=== PATIENT | female | born 1985 | race Asian ===

== ENCOUNTER 2021-01-16 19:24 | Emergency (ER) | payer OTHER ==
[~2021-01-16] VITALS: Ht 152.4 cm; Wt 65.1 kg
[2021-01-16] MEDS ORDERED: EFFE75CA2 PO (19:42)
[2021-01-16] MEDS ORDERED: LORazepam 2 MG/ML VIAL IV STA (19:43)
[2021-01-16] MEDS ORDERED: LORazepam 2 MG/ML VIAL As Ordered ONE (19:47)
[2021-01-17] VITALS: BP 150/85
[2021-01-17] MEDS ORDERED: MECL-86 PO (17:14)
[2021-01-17] MEDS ORDERED: D31000TA2 PO (18:04)
== END 2021-01-17 00:20 | disposition home or self-care (01) ==
LOC: M ED 19:24
DX: F41.0 Panic disorder [episodic paroxysmal anxiety] (principal); Z91.013 Allergy to seafood; Z79.899 Other long term (current) drug therapy
CPT/HCPCS: 96374; 99284; J2060

== ENCOUNTER 2021-01-17 13:55 | Inpatient (IN) | payer OTHER ==
[~2021-01-17] VITALS: Ht 152.4 cm; Wt 63.5 kg
[~2021-01-17 13:55] MED LIST: EFFE75CA2 PO
[2021-01-17 15:13] LABS: HEMATOCRIT 39.9 % (36.0-47.0); HEMOGLOBIN 12.9 g/dl (12.0-15.5); MEAN CORPUSCULAR HEMOGLOBIN 30.6 pg (27.0-33.0); MEAN CORPUSCULAR HGB CONC 32.3 g/dl (32.0-36.5); MEAN CORPUSCULAR VOLUME 94.8 fl (80.0-96.0); PLATELET COUNT, AUTOMATED 265 10^3/uL (150-450); RED BLOOD COUNT 4.21 10^6/uL (4.00-5.40); WHITE BLOOD COUNT 11.6 10^3/uL (4.0-10.0)
[2021-01-17 15:36] LABS: AMPHETAMINES LEVEL URINE NEGATIVE (NEGATIVE); BARBITURATES URINE NEGATIVE (NEGATIVE); BENZODIAZEPINES URINE NEGATIVE (NEGATIVE); CANNABINOIDS URINE POSITIVE (NEGATIVE); COCAINE METABOLITE URINE NEGATIVE (NEGATIVE); METHADONE URINE NEGATIVE (NEGATIVE); OPIATES URINE NEGATIVE (NEGATIVE); PHENCYCLIDINE URINE NEGATIVE (NEGATIVE)
[2021-01-17 15:47] LABS: ACETAMINOPHEN LEVEL < 2.0 UG/ML (10.0-30.0); ALBUMIN 3.8 GM/DL (3.2-5.2); ALT/SGPT 40 U/L (12-78); BILIRUBIN,DIRECT < 0.1 MG/DL (0.0-0.2); BILIRUBIN,TOTAL 0.2 MG/DL (0.2-1.0); BLOOD UREA NITROGEN 11 MG/DL (7-18); CALCIUM LEVEL 9.2 MG/DL (8.5-10.1); CARBON DIOXIDE LEVEL 27 MEQ/L (21-32); CHLORIDE LEVEL 107 MEQ/L (98-107); CREATININE FOR GFR 0.66 MG/DL (0.55-1.30); ETHYL ALCOHOL (ETHANOL) < 0.003 % (0.000-0.010); GLOMERULAR FILTRATION RATE > 60.0 (>60); GLUCOSE, FASTING 108 MG/DL (70-100); POTASSIUM SERUM 4.2 MEQ/L (3.5-5.1); SALICYLATE LEVEL < 1.7 MG/DL (5.0-30.0); SODIUM LEVEL 139 MEQ/L (136-145); TOTAL PROTEIN 7.2 GM/DL (6.4-8.2)
[2021-01-17] MEDS ORDERED: MECL-86 PO (17:14)
[2021-01-17] MEDS ORDERED: D31000TA2 PO (18:04)
[2021-01-17 18:12] LABS: RSV AMPLIFICATION NEGATIVE (NEGATIVE)
[2021-01-17] MEDS ORDERED: traZODone 50 MG TAB PO PRN (19:05)
[2021-01-17] MEDS ORDERED: MOM 30ML SUSPENSION UDC PO PRN (19:05)
[2021-01-17] MEDS ORDERED: MAALOX 30 ML SUSP *UDC PO PRN (19:05)
[2021-01-17] MEDS ORDERED: LORazepam 1 MG TAB PO PRN (19:05)
[2021-01-17] MEDS: ACETAMINOPHEN TAB 650MG DOSE (2X325MG) PO PRN (21:05)
[2021-01-17 22:03] VITALS: BP 148/98
[2021-01-18 06:46] VITALS: BP 135/86
[2021-01-18] MEDS ORDERED: VENLAFAXINE **XR** 75MG CAPSULE PO SCH (09:00)
[2021-01-18] MEDS: VENLAFAXINE **XR** 75MG CAPSULE PO SCH (09:27)
--- NOTE | 2021-01-18 12:04 | MHHPEPDOC ---
General Date Of Admission: January 18, 2021 Legal Status: 9.13 Chief Complaint "[I wasn't having any panic attacks. I couldn't breathe, I was sweaty. I was scared and very upset and depressed]. History of Present Illness This is a 35-year-old [place] female who Has a history of depression since she had her last child in 2011. She has been seeing a psychiatrist and was a prescribed the effects up to 75 mg but had no previous inpatient treatment. The patient was brought to emergency room by her after she experienced a few severe panic attacks last night reporting feeling anxious, fearful, or scared, couldn't breathe, but also was quite depressed and sad and tearful and was admitted on voluntary status. Patient states that although she has been taking Effexor as prescribed but stated having frequent episodes of anxiety and depression for several months especially with her missing her home country of [facility] which she hasn't visited for the past 7 years but strongly denies any suicidal thoughts. She states that she agreed to come in so she can get her medication adjusted so she doesn't have to suffer from the panic attacks but also hoping that she might be able to control her depressed mood. She is denying any history of a suicidal attempt. Denies any thoughts of suicide and is willing to cooperate with treatment. She denies any history of karen or psychosis. Psychiatric Review of Systems Depression (2 or more weeks): depressed mood, anhedonia, decreased energy, difficulty concentrating Karen (4 or more days of): denies Psychosis: denies PTSD: denies Anxiety: gen/non-specific anxiety, situational anxiety, stressor related anxiety, panic attacks Anxiety/ 6 months or more of: easily fatigued, difficulty concentrating Past Psychiatric History Previous Psychiatric Diagnosis: Episode of anxiety and depression since 2011. Previous Psychiatric Admissions: No previous inpatient treatment . Suicide Attempts: None. Psychiatric Follow-up: Gets antidepressant medicine from her primary care doc sonia. Psychiatric medications: Takes Effexor 75 mg daily. Past Medical History Medical Problems Patient denies any major medical episode Head Injury: No Seizures: No Hospitalizations: No Surgeries: No Family Medical/Psychiatric HX Medical Problems Patient's father of a heart attack and her mother of bone cancer Psychiatric Disorders: No Addiction: No Suicide Attemps/Completions: No Addiction History denies Social History Childhood: Born in [facility]. Abuse/Trauma: None . Current Living Situation: Reviewed the and 4 children aged 8 12 13 17. Education: High school graduation. Employment: No employment history Social Support: . She has only 1 sister living in [facility]. Legal: No legal issues. Marital: Been for 17 years. Her being very supportive and understanding. Her is a [employer] sergeant stationed at [place]. Mental Status Examination General Appearance: appears stated age, hospital scubs/clothing Build: average Demeanor: average Eye Contact: average Activity: average Behavior: cooperative Speech: clear, normal volume, reg/rate,rhythm,volume Mood: depressed, anxious Mood Reports feeling anxious at times is sad and depressed Affect: appropriate, congruent, anxious Thought Process: logical/linear Thought Content (Delusions): none reported Thought Content (Other): none reported Thought Content (Aggressive): none reported Perception (Hallucinations): none reported Perception (Other): none reported Cognition (Impairment of): none reported Cognition(Intelligence Est.): average Oriented: Awake, Alert, Oriented times three Insight: fair Judgment: Fair Psychosis: Denies Diagnoses Major depressive episode, recurrent, moderate A-FIB/CHADSVASC A-FIB History Current/History of A-Fib/PAF?: No Current PO Anticoag Therapy: No Age/Risk Factor Scoring CHADSVASC: CHADSVASC Response (Comments) Value Gender Risk Factor Female 1 Hx of CHF No 0 Hx of HTN No 0 Hx of Stroke/TIA/or VTE No 0 Hx of Diabetes No 0 Hx of Vascular Disease No 0 Total 1 Initial Treatment Plan 1. Patient was admitted on a 9.39 status. 2. Complete history was obtained. 3. With patients permission, family will be contacted and database will be expanded. 4. Patients medication regimen will be reviewed and changed accordingly. 5. Patient will be provided with protected environment. 6. Patient will be treated with individual, group, and milieu therapies. 7. Patient will receive supportive psych-education. 8. Discharge planning will commence immediately. 9. Outpatient follow-up treatment will be strongly recommended. 10. The initial treatment plan will focus initially on: * Depression. * Risk for suicide. ESTIMATED LENGTH OF STAY: 3-5 days- DAYS. TIME SPENT COUNSELING AND COORDINATING INITIAL CARE: 50 minutes Tobacco Cessation Screen If Patient is a Smoker Patient is nonsmoker N/A-No Antipsychotics Vital Signs Vital Signs Date Time Temp Pulse Resp B/P (MAP) Pulse Ox O2 Delivery O2 Flow Rate FiO2 01/18/21 06:46 97.8 78 16 135/86 (102) 98 Room Air Laboratory Data 24H Labs Laboratory Tests 2 01/17/21 14:57: Nucleated Red Blood Cells % (auto) 0.0, Anion Gap 5L, Glomerular Filtration Rate > 60.0, Calcium Level 9.2, Total Bilirubin 0.2, Direct Bilirubin < 0.1, Aspartate Amino Transf (AST/SGOT) 18, Alanine Aminotransferase (ALT/SGPT) 40, Alkaline Phosphatase 65, Total Protein 7.2, Albumin 3.8, Albumin/Globulin Ratio 1.1L, Thyroid Stimulating Hormone (TSH) 1.240, Salicylates Level < 1.7L, Urine Opiates Screen NEGATIVE, Urine Methadone Screen NEGATIVE, Acetaminophen Level < 2.0L, Urine Barbiturates Screen NEGATIVE, Urine Phencyclidine Screen NEGATIVE, Urine Amphetamines Screen NEGATIVE, Urine Benzodiazepines Screen NEGATIVE, Urine Cocaine Metabolite Screen NEGATIVE, Urine Cannabinoids Screen POSITIVEH, Ethyl Alcohol Level < 0.003 01/17/21 17:26: Coronavirus (COVID-19)(PCR) NEGATIVE, Influenza Type A (RT-PCR) NEGATIVE, Influenza Type B (RT-PCR) NEGATIVE, Respiratory Syncytial Virus (PCR) NEGATIVE CBC/BMP Laboratory Tests 01/17/21 14:57 Medications Scheduled Cholecalciferol (Vitamin D3) (Vitamin D3) 1,000 Unit Tablet, 5,000 UNITS PO DAILY, (Reported) Venlafaxine HCl (Effexor Xr) 75 Mg Cap.er.24h, 75 MG PO DAILY, (Reported) Scheduled PRN Meclizine HCl (Meclizine HCl) 25 Mg Tablet, 25 MG PO TID PRN for DIZZINESS, (Reported) Allergies Coded Allergies: shellfish derived (Verified Allergy, Unknown, 01/16/21) ESTHER RACHEL M.D. January 18, 2021 12:04
--- NOTE | 2021-01-18 12:36 | HPEPDOC ---
[facility] Medical History & Physical Date of Admission January 17, 2021 Date of Service: January 18, 2021 History and Physical CHIEF COMPLAINT: shortness of breath, diaphoresis HISTORY OF PRESENT ILLNESS: 35F brought to emergency room by her after she experienced a few severe panic attacks reporting feeling anxious, fearful, or scared, couldn't breathe, but also was quite depressed and sad and tearful and was admitted on voluntary status. Patient states that although she has been taking Effexor as prescribed but stated having frequent episodes of anxiety and depression for several months especially with her missing her home country of [facility] which she hasn't visited for the past 7 years but strongly denies any suicidal thoughts. She denies chest pain, shortness of breath, headaches, abdominal pain, N/V/D. PAST MEDICAL HISTORY: Denies PAST SURGICAL HISTORY: #carpal tunnel release ALLERGIES: Please see below. REVIEW OF SYSTEMS: Negative except as per HPI. HOME MEDICATIONS: Please see below. PHYSICAL EXAMINATION: VITAL SIGNS: See below General: NAD, sitting comfortably in chair HEENT: NC/AT, EOMI Lungs: CTA B/L Heart: +S1S2, RRR Abd: soft, NT, +BS Ext: no edema LABORATORY DATA: See below. MICROBIOLOGY: Please see below. A/P: 35 yo female admitted for panic attacks, denies suicidal/homicidal ideation. #panic attacks - follow as per primary team Thank you for this consultation. Please re-consult as needed. Vital Signs Vital Signs Date Time Temp Pulse Resp B/P (MAP) Pulse Ox O2 Delivery O2 Flow Rate FiO2 01/18/21 06:46 97.8 78 16 135/86 (102) 98 Room Air Laboratory Data Labs 24H Laboratory Tests 2 01/17/21 14:57: Nucleated Red Blood Cells % (auto) 0.0, Anion Gap 5L, Glomerular Filtration Rate > 60.0, Calcium Level 9.2, Total Bilirubin 0.2, Direct Bilirubin < 0.1, Aspartate Amino Transf (AST/SGOT) 18, Alanine Aminotransferase (ALT/SGPT) 40, Alkaline Phosphatase 65, Total Protein 7.2, Albumin 3.8, Albumin/Globulin Ratio 1.1L, Thyroid Stimulating Hormone (TSH) 1.240, Salicylates Level < 1.7L, Urine Opiates Screen NEGATIVE, Urine Methadone Screen NEGATIVE, Acetaminophen Level < 2.0L, Urine Barbiturates Screen NEGATIVE, Urine Phencyclidine Screen NEGATIVE, Urine Amphetamines Screen NEGATIVE, Urine Benzodiazepines Screen NEGATIVE, Urine Cocaine Metabolite Screen NEGATIVE, Urine Cannabinoids Screen POSITIVEH, Ethyl Alcohol Level < 0.003 01/17/21 17:26: Coronavirus (COVID-19)(PCR) NEGATIVE, Influenza Type A (RT-PCR) NEGATIVE, Influenza Type B (RT-PCR) NEGATIVE, Respiratory Syncytial Virus (PCR) NEGATIVE CBC/BMP Laboratory Tests 01/17/21 14:57 Home Medications Scheduled Cholecalciferol (Vitamin D3) (Vitamin D3) 1,000 Unit Tablet, 5,000 UNITS PO DAILY Venlafaxine HCl (Effexor Xr) 75 Mg Cap.er.24h, 75 MG PO DAILY Scheduled PRN Meclizine HCl (Meclizine HCl) 25 Mg Tablet, 25 MG PO TID PRN for DIZZINESS Allergies Coded Allergies: shellfish derived (Verified Allergy, Unknown, 01/16/21) A-FIB/CHADSVASC A-FIB History Current/History of A-Fib/PAF?: No Age/Risk Factor Scoring CHADSVASC: CHADSVASC Response (Comments) Value Gender Risk Factor Female 1 Hx of CHF No 0 Hx of HTN No 0 Hx of Stroke/TIA/or VTE No 0 Hx of Diabetes No 0 Hx of Vascular Disease No 0 Total 1 OTOTIE SHAH MD January 18, 2021 12:36
[2021-01-18] MEDS: ACETAMINOPHEN TAB 650MG DOSE (2X325MG) PO PRN ×2 (14:35→20:35)
[2021-01-18 16:19] VITALS: BP 128/71
[2021-01-19 06:29] VITALS: BP 136/98
[2021-01-19] MEDS: VENLAFAXINE **XR** 75MG CAPSULE PO SCH (08:37)
--- NOTE | 2021-01-19 10:36 | MHIPNPDOC ---
[facility] Progress Note Progress Note DATE OF SERVICE: 01/19/21 This 35-year-old female was admitted due to increasing depression and panic symptoms. Her Effexor was increased 150 mg daily and she took her morning dose yesterday. Reports that the she had the slight headache throughout the day. She has no other side effect. Otherwise. The patient states that she is feeling better after being admitted and didn't have any more panic symptoms and has not feeling any suicidal thoughts anymore. She is worried about her children, although her and the neighbors are taking care of them and she has sp oken with her and stated that she feels being understood and supported. She feels more hopeful with the treatment and claims that she is not having any suicidal thoughts and is somewhat anxious to go home as soon as possible. Patient was advised to give a few more days to see the benefit of increased the medications and she is agreeable to this plan. HISTORY: . VITAL SIGNS: See below. NEW TEST RESULTS: . CURRENT MEDICATIONS: See below. MENTAL STATUS EXAMINATION: Patient is a [35]-year old female, who is [in no acute distress]. Speech: Is [, productive]. Language skills are [good]. Thought processes including: [, Organized]. Thought content: [No psychotic symptoms]. Abstract reasoning, and computation: [Good]. Description of associations: [, Organized]. Description of abnormal or psychotic thoughts: [None]. Judgment: [.fair]. Insight: fair]. Orientation: Well oriented . Recent and remote memory: [Good. Attention span and concentration: [Good]. Language: . Fund of knowledge: [Average]. Mood: [Moderately depressed]. Affect: [, Depressed, but appropriate]. DIAGNOSES: 1. [Major depression, recurrent]. 2. . 3. . ASSESSMENT:[Cooperating and tolerating medications MANAGEMENT PLAN: [. Continue with the increase of Effexor and supportive therapy]. TIME SPENT: [20 minutes] minutes. Vital Signs Vital Signs Date Time Temp Pulse Resp B/P (MAP) Pulse Ox O2 Delivery O2 Flow Rate FiO2 01/19/21 06:29 97.7 99 16 136/98 (111) 100 Room Air Current Medications Current Medications Medications (Trade) Dose Ordered Sig/Patrica Route PRN Reason Start Time Stop Time Status Last Admin Dose Admin Acetaminophen (Tylenol Tab) 650 mg Q6HP PRN PO HEADACHE or DISCOMFORT 01/17/21 19:05 01/18/21 20:35 Al Hydrox/Mg Hydrox/Simethicone (Mylanta) 30 ml Q4HP PRN PO HEARTBURN/INDIGESTION 01/17/21 19:05 Home Med (Med Rec Complete!) ASDIRECTED XX 01/17/21 18:05 01/17/21 18:05 DC Lorazepam (Ativan) 1 mg Q6HP PRN PO ANXIETY/AGITATION 01/17/21 19:05 01/19/21 19:05 Magnesium Hydroxide (Milk Of Magnesia) 30 ml DAILYPRN PRN PO CONSTIPATION 01/17/21 19:05 Trazodone HCl (Desyrel) 50 mg QHSP PRN PO INSOMNIA 01/17/21 19:05 Venlafaxine HCl (Effexor Xr) 75 mg DAILY PO 01/18/21 09:00 Cancel Venlafaxine HCl (Effexor Xr) 150 mg DAILY PO 01/18/21 09:00 01/19/21 08:37 Allergies Coded Allergies: shellfish derived (Verified Allergy, Unknown, 01/16/21) ESTHER RACHEL M.D. January 19, 2021 10:36
[2021-01-19 16:16] VITALS: BP 135/90
[2021-01-20 06:05] VITALS: BP 139/90
[2021-01-20] MEDS: VENLAFAXINE **XR** 75MG CAPSULE PO SCH (08:13)
--- NOTE | 2021-01-20 09:16 | MHIPNPDOC ---
[facility] Progress Note Progress Note DATE OF SERVICE: 01/20/21 The patient reports that the she didn't have any headache yesterday after taking the medicine and is feeling safe to continue the current amount of Effexor. She also reports that the she spoke with her and he is more understanding and supportive and stated that the he is agreeable to have her visit her country next year. She is missing her children and would like to be home soon and strongly denies any suicidal thoughts at all. She didn't have any panic attacks and appears more animated and spontaneous and maintaining good control with no suicidal thoughts or behavior. HISTORY: . VITAL SIGNS: See below. NEW TEST RESULTS: . CURRENT MEDICATIONS: See below. MENTAL STATUS EXAMINATION: Patient is a 35-year old female, Speech: Is , productive and rational. Language skills are good. Thought processes including: , Organized. Thought content: Without any psychosis. Abstract reasoning, and computation: Good. Description of associations: Good. Description of abnormal or psychotic thoughts: None. Judgment: , Fair. Insight: [, Fair. Orientation: , Well oriented. Recent and remote memory: Good. Attention span and concentration: Good. Language: . Fund of knowledge: Average. Mood: Euthymic. Affect: , Appropriate. DIAGNOSES: 1. . Major depression, recurrent 2. . 3. . ASSESSMENT:Cooperating with the treatment and showing improvement MANAGEMENT PLAN: . Continue with the current medicine and possible discharge tomorrow. TIME SPENT: 20 minutes. Vital Signs Vital Signs Date Time Temp Pulse Resp B/P (MAP) Pulse Ox O2 Delivery O2 Flow Rate FiO2 01/20/21 06:05 98.3 84 16 139/90 (106) 100 Room Air Current Medications Current Medications Medications (Trade) Dose Ordered Sig/Patrica Route PRN Reason Start Time Stop Time Status Last Admin Dose Admin Acetaminophen (Tylenol Tab) 650 mg Q6HP PRN PO HEADACHE or DISCOMFORT 01/17/21 19:05 01/18/21 20:35 Al Hydrox/Mg Hydrox/Simethicone (Mylanta) 30 ml Q4HP PRN PO HEARTBURN/INDIGESTION 01/17/21 19:05 Home Med (Med Rec Complete!) ASDIRECTED XX 01/17/21 18:05 01/17/21 18:05 DC Lorazepam (Ativan) 1 mg Q6HP PRN PO ANXIETY/AGITATION 01/17/21 19:05 01/19/21 19:05 DC Magnesium Hydroxide (Milk Of Magnesia) 30 ml DAILYPRN PRN PO CONSTIPATION 01/17/21 19:05 Trazodone HCl (Desyrel) 50 mg QHSP PRN PO INSOMNIA 01/17/21 19:05 Venlafaxine HCl (Effexor Xr) 75 mg DAILY PO 01/18/21 09:00 Cancel Venlafaxine HCl (Effexor Xr) 150 mg DAILY PO 01/18/21 09:00 01/20/21 08:13 Allergies Coded Allergies: shellfish derived (Verified Allergy, Unknown, 01/16/21) ESTHER RACHEL M.D. January 20, 2021 09:16
[2021-01-20] MEDS: ACETAMINOPHEN TAB 650MG DOSE (2X325MG) PO PRN ×2 (11:30→20:46)
[2021-01-20 17:18] VITALS: BP 143/71
[2021-01-21 06:21] VITALS: BP 142/67
[2021-01-21] MEDS: VENLAFAXINE **XR** 75MG CAPSULE PO SCH (08:16)
[2021-01-21] MEDS ORDERED: VENL75CA47 PO (09:27)
--- NOTE | 2021-01-28 07:36 | MHDSPDOC ---
[facility] Discharge Summary Discharge Summary DATE OF ADMISSION: January 17, 2021 at 19:02 DATE OF DISCHARGE: January 21 06/29/2021 DISCHARGE DIAGNOSES: 1. Major depression, recurrent, moderate. 2. . REASON FOR ADMISSION: 35-year-old patient female admitted due to increasing depression and acute panic attacks with vague suicidal thoughts. Patient has no prior inpatient treatment, but has been in outpatient therapy since 2011 for what appears to be a depression. She states that she is been experiencing increasing panic attacks in the past several months and experiencing increasing depression. On admission, she denies any active suicidal thoughts, but feeling sad, depressed, anxious, and having frequent panic attacks CONSULTANTS INVOLVED: , Not [id number] TREATMENT AND PROGRESS ON THE UNIT : Patient to was seen for daily supportive therapy and her medication E was increased to 250 mg daily and was evaluated for any suicidal risk. HOSPITAL COURSE: Patient tolerated increased the medications were without any side effect. Reports that her panic symptoms as decreased and she is not as feeling depressed or hopeless. She is been missing her family and wanted to visit them as soon as possible, but not been able to do so which was was one of her main stressors. Her is very understanding and supportive and she is feeling much less depressed and denies any suicidal thoughts and her affect is much more animated than spontaneous and normal panic symptoms reported. DISCHARGE ASSESSMENT: Patient is much improved and stable and not suicidal MENTAL STATUS EXAMINATION ON DISCHARGE: Patient is a -year old female, who is . Speech is , productive. Language skills are good. Thought processes including: Well-organized. Thought content: No suicidal thoughts. Abstract reasoning, and computation: Good. Description of associations: Good. Description of abnormal or psychotic thoughts: None. Judgment: , Fair. Insight: Good. Orientation to , well-oriented. Recent and remote memory: Good . Attention span and concentration: Good. Language: . Fund of knowledge: Average . Mood: , Not as anxious and feeling much more hopeful. Affect: Appropriate with good range. MEDICATIONS ON DISCHARGE: - Effexor are 150 mg daily for 7 days with a 3 refills for . - for . - for . PLAN/FOLLOWUP ARRANGEMENT to follow up with the [facility] outpatient clinic. The amount of time spent in the coordination of care for this patient was approximately 40 minutes ETOH/Disorder Med Rx ETOH/DRUG DISORDER RX: N/A Vital Signs/I&Os Vital Signs Date Time Temp Pulse Resp B/P (MAP) Pulse Ox O2 Delivery O2 Flow Rate FiO2 01/21/21 06:21 98.5 88 15 142/67 (92) 99 Room Air Medications Scheduled Cholecalciferol (Vitamin D3) (Vitamin D3) 1,000 Unit Tablet, 5,000 UNITS PO DAILY, (Reported) Venlafaxine HCl (Venlafaxine HCl ER) 75 Mg Cap.er.24h, 150 MG PO DAILY for depression for 7 Days, #14 Allergies Coded Allergies: shellfish derived (Verified Allergy, Unknown, 01/16/21) ESTHER RACHEL M.D. January 21, 2021 07:51
== END 2021-01-21 10:30 | disposition home or self-care (01) | DRG 885 ==
LOC: M ED 13:55 → M ED INP 19:02 → M PSY 21:30
PROVIDERS: ADMIT Psychiatry & Neurology Psychiatry; ATTEND Psychiatry & Neurology Psychiatry
DX: F33.1 Major depressive disorder, recurrent, moderate (principal); Z20.822 Contact with and (suspected) exposure to COVID-19; Z79.899 Other long term (current) drug therapy; Z91.013 Allergy to seafood; R06.02 Shortness of breath; R61 Generalized hyperhidrosis; F41.0 Panic disorder [episodic paroxysmal anxiety]

== ENCOUNTER 2021-07-04 11:02 | Emergency (ER) | payer OTHER ==
[~2021-07-04] VITALS: Ht 152.4 cm; Wt 70.9 kg
[~2021-07-04 11:02] MED LIST changes: +D31000TA2 PO; +MECL-86 PO; +VENL75CA47 PO
--- OUTSIDE RECORDS SUMMARY | 2021-07-04 11:08 | CCD ---
Author Author [facility] Organization [facility] Address Unknown Phone Unavailable Care Team Providers Care Lathe Tender Name Role Phone Kacey KELLER MD Unavailable Unavailable Kacey KELLER MD Unavailable Unavailable Kacey EKLLER MD Unavailable Unavailable Kacey KELLER MD Unavailable Unavailable Kacey KELLER MD Unavailable Unavailable Kacey KELLER MD Unavailable Unavailable Kacey KELLER MD Unavailable Unavailable Kacey KELLER MD Unavailable Unavailable Kacey KELLER MD Unavailable Unavailable Kacey KELLER MD Unavailable Unavailable Kacey KELLER MD Unavailable Unavailable Kacey KELLER MD Unavailable Unavailable Kacey KELLER MD Unavailable Unavailable Kacey KELLER MD Unavailable Unavailable Kacey KELLER MD Unavailable Unavailable Kacey KELLER MD Unavailable Unavailable Kacey KELLER MD Unavailable Unavailable Kacey KELLER MD Unavailable Unavailable Kacey KELLER MD Unavailable Unavailable Kacey KELLER MD Unavailable Unavailable Kacey KELLER MD Unavailable Unavailable Kacey KELLER MD Unavailable Unavailable Kacey KELLER MD Unavailable Unavailable Kacey KELLER MD Unavailable Unavailable Kacey KELLER MD Unavailable Unavailable Kacey KELLER MD Unavailable Unavailable Kacey KELLER MD Unavailable Unavailable Kacey KELLER MD Unavailable Unavailable Kacey KELLER MD Unavailable Unavailable Kacey KELLER MD Unavailable Unavailable Kacey KELLER MD Unavailable Unavailable Kacey KELLER MD Unavailable Unavailable Kacey KELLER MD Unavailable Unavailable Kacey KELLER MD Unavailable Unavailable Kacey KELLER MD Unavailable Unavailable Kacey KELLER MD Unavailable Unavailable Kacey KELLER MD Unavailable Unavailable Kacey KELLER MD Unavailable Unavailable Kacey KELLER MD Unavailable Unavailable Kacey KELLER MD Unavailable Unavailable Re-disclosure Warning The records that you are about to access may contain information from federally-assisted alcohol or drug abuse programs. If such information is present, then the following federally mandated warning applies: This information has been disclosed to you from records protected by federal confidentiality rules (42 CFR part 2). The federal rules prohibit you from making any further disclosure of this information unless further disclosure is expressly permitted by the written consent of the person to whom it pertains or as otherwise permitted by 42 CFR part 2. A general authorization for the release of medical or other information is NOT sufficient for this purpose. The Federal rules restrict any use of the information to criminally investigate or prosecute any alcohol or drug abuse patient.The records that you are about to access may contain highly sensitive health information, the redisclosure of which is protected by Article 27-F of the [facility] Public Health law. If you continue you may have access to information: Regarding HIV / AIDS; Provided by facilities licensed or operated by the [facility] Office of Mental Health; or Provided by the [facility] Office for People With Developmental Disabilities. If such information is present, then the following [facility] mandated warning applies: This information has been disclosed to you from confidential records which are protected by state law. State law prohibits you from making any further disclosure of this information without the specific written consent of the person to whom it pertains, or as otherwise permitted by law. Any unauthorized further disclosure in violation of state law may result in a fine or group home sentence or both. A general authorization for the release of medical or other information is NOT sufficient authorization for further disc losure. Encounters Encounter Providers Location Date Indications Data Source(s ) Outpatient Attender: SHON KELLER MDConsultant: SHON Prado MD 06/29/2021 11:47:59 AM EDT [facility] Immunizations Vaccine Date Status Description Data Source(s) COVID-19 VACCINE Pfizer 12/28/2020 12:00:00 AM EDT completed [facility] Vaccine Series Complete: YESThis Data wa s Submitted to [facility] Via [employer]. COVID-19 VACCINE Pfizer 12/07/2020 12:00:00 AM EDT completed [facility] Vaccine Series Complete: NOThis Data was Submitted to [facility] Via [employer]. Medications No Information Insurance Providers Payer name Policy type / Coverage type Policy ID Covered democrat ID Covered democrat's relationship to licona Policy Licona Plan Information [facility] [id number] [facility] [id number] [facility] [id number] 18 [id number] [facility] [id number] [facility] [id number] [facility] [id number] [facility] [id number] [facility] [id number] [facility] [id number] Problems, Conditions, and Diagnoses No Information Surgeries/Procedures No Information Results ID Date Data Source [id number] 06/30/2021 10:39:00 [place] [address] PHONE: [phone] FAX: [phone] Name .................. : MESHA Brown Acct Number.................. : [id number] ROOM. ................. : Number ................... : [id number] Stay type ............. : O/P Discharge Date......... ... : Admit Date ......... : Admit Phys .................... : KRISHNA AGUILA Date of ....... : 1985 Family Phys ................... : KRISHNA AGUILA Phone .................. : [phone] Age ................................ : 35 Film# .................. .:[id number] Sex ................................. : F Unsigned transcriptions are preliminary reports and do not represent a medical or legal document MRI UPP EXT ANY JT W/O CON RT [id number] COMPLETE:06/30/21 15:34 SLOAN [id number] Reason for Exam: R WRIST PAIN MRI RIGHT WRIST WITHOUT CONTRAST INDICATION: Carpal tunnel surgery 3 years ago. Pain in the wrist 6 months. Clinical diagnosis radial styloid tenosynovitis. COMPARISON: None CONTRAST: None TECHNIQUE: Multiplanar imaging is performed of the wrist using multiple pulse sequences. The examination is degraded by large patient motion. FNDINGS: TFCC: Intact. LIGAMENTS: The scapholunate and lunotriquetral ligaments are intact. BONES: No fracture or bone contusion. No destructive bone lesion. JOINTS: The articular cartilage is well preserved. No significant degenerative changes. No subluxation or dislocation. Moderate effusion in the distal radioulnar joint. TENDONS: Mild increased fluid is seen in the extensor pollicis brevis tendon sheath. The tendon is mildly enlarged. There is internal T2 signal with some longitudinal splitting. No other tendon abnormalities are identified. MUSCLES: No muscle edema or atrophy. IMPRESSION: 1. Partial tear extensor pollicis brevis with longitudinal splitting. Mild tenosynovitis. 2. Moderate joint effusion distal radial ulnar joint. Page 1 of 2 [place] [address] PHONE: [phone] FAX: [phone] Name .................. : MESHA Brown Acct Number.................. : [id number] ROOM. ................. : MR Number ................... : [id number] Stay type ............. : O/P Discharge Date......... ... : Admit Date ......... : Admit Phys .................... : KRISHNA MINGO Date of ....... : 1985 Family Phys ................... : KRISHNA AGUILA Phone .................. : [phone] Age ................................ : 35 Film# .................. .:[id number] Sex ................................. : F Unsigned transcriptions are preliminary reports and do not represent a medical or legal document MRI UPP EXT ANY JT W/O CON RT [id number] COMPLETE:06/30/21 15:34 SLOAN [id number] Reason for Exam: R WRIST PAIN Electronically Reviewed and Signed By Woo Leary MD , 06/30/21 22:39, JWS Transcribe Initials: DZ , Transcribe Date: 06/30/21 19:20, Dictation Date: Copy for: KRISHNA Erazo via fax Copy for: 710 MED REC Page 2 of 2 Name Value Range Interpretation Code Description Data Jackie rce(s) Supporting Document(s) ID Date Data Source [id number] 01/17/2021 05:26:00 PM EDT [facility] Name Value Range Interpretation Code Description Data Jackie rce(s) Supporting Document(s) SARS coronavirus 2 RNA [Presence] in Res piratory specimen by RAY with probe detection NEGATIVE [facility] This lab was ordered by [facility] a nd reported by [facility]. Procedure Social History No Information
--- OUTSIDE RECORDS SUMMARY | 2021-07-04 12:55 | CCD ---
Author Author [facility] Organization [facility] Address Unknown Phone Unavailable Care Team Providers Care Java Programmer Analyst Name Role Phone Kacey KELLER MD Unavailable [...] is protected by Article 27-F of the [facility] Public Health law. If you continue you may have access to information: Regarding HIV / AIDS; Provided by facilities licensed or operated by the [facility] Office of Mental Health; or Provided by the [facility] Office for People With Developmental Disabilities. If such information is present, then the following [facility] mandated warning applies: This information [...] law may result in a fine or senior care sentence or both. A general authorization for the release of medical or other information is NOT sufficient authorization for further disc losure. Encounters Encounter Providers Location Date Indications Data Source(s ) Outpatient Attender: SHON KELLER MDConsultant: SHON Prado MD 06/29/2021 11:47:59 AM EDT [facility] Immunizations Vaccine Date Status Description Data Source(s) COVID-19 VACCINE Pfizer 12/28/2020 12:00:00 AM EDT completed [facility] Vaccine Series Complete: YESThis Data wa s Submitted to [facility] Via [employer]. COVID-19 VACCINE Pfizer 12/07/2020 12:00:00 AM EDT completed [facility] Vaccine Series Complete: NOThis Data was Submitted to [facility] Via [employer]. Medications No Information Insurance Providers Payer name Policy type / Coverage type Policy ID Covered libertarian ID Covered libertarian's relationship to licona Policy Licona Plan Information [facility] [id number] [facility] [id number] [facility] [id number] 18 [id number] [facility] [id number] [facility] [id number] [facility] D[facility] [id number] [facility] [id number] [facility] [id number] [facility] [id number] Problems, Conditions, and Diagnoses No Information Surgeries/Procedures No Information Results ID Date Data Source [id number] 06/30/2021 10:39:00 [place] [address] PHONE: [phone] FAX: [phone] Name .................. : MESHA Brown Acct Number.................. : [id number] ROOM. ................. : Number ................... : [id number] Stay type ............. : O/P Discharge Date......... ... : Admit Date ......... : Admit Phys .................... : KRISHNA AGUILA Date of ....... : 1985 Family Phys ................... : KRISHNA AGUILA Phone .................. : [phone] Age ................................ : 35 Film# .................. .:[id number] Sex ................................. : F Unsigned transcriptions are preliminary reports and do not represent a medical or legal document MRI UPP EXT ANY JT W/O CON RT [id number] COMPLETE:06/30/21 15:34 SLOAN [id number] Reason for Exam: R WRIST PAIN MRI [...] radial ulnar joint. Page 1 of 2 [place] [address] PHONE: [phone] FAX: [phone] Name .................. : MESHA Brown Acct Number.................. : [id number] ROOM. ................. : MR Number ................... : [id number] Stay type ............. : O/P Discharge Date......... ... : Admit Date ......... : Admit Phys .................... : KRISHNA MINGO Date of ....... : 1985 Family Phys ................... : KRISHNA AGUILA Phone .................. : [phone] Age ................................ : 35 Film# .................. .:[id number] Sex ................................. : F Unsigned transcriptions are preliminary reports and do not represent a medical or legal document MRI UPP EXT ANY JT W/O CON RT [id number] COMPLETE:06/30/21 15:34 SLOAN [id number] Reason for Exam: R WRIST PAIN Electronically Reviewed and Signed By Woo Leary MD , 06/30/21 22:39, JWS Transcribe Initials: DZ , Transcribe Date: 06/30/21 19:20, Dictation Date: Copy for: KRISHNA Erazo via fax Copy for: 710 MED REC Page 2 of 2 Name Value Range Interpretation Code Description Data Jackie rce(s) Supporting Document(s) ID Date Data Source [id number] 01/17/2021 05:26:00 PM EDT [facility] Name Value Range Interpretation Code Description Data Jackie rce(s) Supporting Document(s) SARS coronavirus 2 RNA [Presence] in Res piratory specimen by RAY with probe detection NEGATIVE [facility] This lab was ordered by [facility] a nd reported by [facility]. Procedure Social History No Information
--- NOTE | 2021-07-04 13:52 | REP ---
INDICATION: CHEST PAIN. COMPARISON: None. TECHNIQUE: Portable FINDINGS: The technique utilized in obtaining the radiograph has magnified the cardiac silhouette and accentuated the interstitial markings. The superior mediastinal structures are midline. The cardiac silhouette is unremarkable in size, shape, and position. The diaphragmatic surfaces of the lungs are regular, and the costophrenic angles are clear. The pulmonary kumar are clear. The imaged osseous structures are intact. IMPRESSION: There is no acute cardiopulmonary disease. <Electronically signed by Roverto Angelo > 07/04/21 [id number]
[2021-07-04 13:56] LABS: BASO % 0.6 % (0.0-1.0); EOS # 0.1 10^3/uL (0.0-0.5); EOS % 1.4 % (0.0-3.0); HEMATOCRIT 42.1 % (36.0-47.0); HEMOGLOBIN 13.7 g/dl (12.0-15.5); LYMPH # 2.6 10^3/uL (1.5-5.0); LYMPH % 39.6 % (24.0-44.0); MEAN CORPUSCULAR HEMOGLOBIN 30.7 pg (27.0-33.0); MEAN CORPUSCULAR HGB CONC 32.5 g/dl (32.0-36.5); MEAN CORPUSCULAR VOLUME 94.4 fl (80.0-96.0); MONO # 0.4 10^3/uL (0.0-0.8); MONO % 5.7 % (2.0-8.0); NEUTROPHILS # 3.5 10^3/uL (1.5-8.5); NEUTROPHILS % 52.5 % (36.0-66.0); PLATELET COUNT, AUTOMATED 292 10^3/uL (150-450); RED BLOOD COUNT 4.46 10^6/uL (4.00-5.40); WHITE BLOOD COUNT 6.6 10^3/uL (4.0-10.0)
[2021-07-04 14:23] LABS: ALBUMIN 3.9 GM/DL (3.2-5.2); ALT/SGPT 44 U/L (12-78); BILIRUBIN,DIRECT < 0.1 MG/DL (0.0-0.2); BILIRUBIN,TOTAL 0.3 MG/DL (0.2-1.0); BLOOD UREA NITROGEN 10 MG/DL (7-18); CALCIUM LEVEL 9.7 MG/DL (8.5-10.1); CARBON DIOXIDE LEVEL 28 MEQ/L (21-32); CHLORIDE LEVEL 108 MEQ/L (98-107); CREATININE FOR GFR 0.76 MG/DL (0.55-1.30); GLOMERULAR FILTRATION RATE > 60.0 (>60); GLUCOSE, FASTING 101 MG/DL (70-100); LIPASE 175 U/L (73-393); SODIUM LEVEL 142 MEQ/L (136-145); TOTAL PROTEIN 7.4 GM/DL (6.4-8.2)
[2021-07-04 14:29] VITALS: BP 145/95
--- NOTE | 2021-07-04 18:25 | ECGEPIP ---
[facility] - ED Test Date: 2021-07-04 Pat Name: ENRIQUE ZIMMER Department: Room: - Gender: Female Psychiatry Physician: AMMY : 1985 Requested By: Margarita Davenport Order Number: [id number] Reading MD: Margarita Davenport Measurements Intervals [place] Rate: 74 P: 47 WY: 156 QRS: -15 QRSD: 88 T: 24 QT: 404 QTc: 448 Interpretive Statements Normal sinus rhythm with sinus arrhythmia irbbb no prior Electronically Signed on 07-04-2021 18:25:28 EDT by Margarita Davenport
== END 2021-07-04 14:47 | disposition home or self-care (01) ==
LOC: M ED 11:02
DX: R07.89 Other chest pain (principal); I10 Essential (primary) hypertension; I45.19 Other right bundle-branch block; Z79.899 Other long term (current) drug therapy; Z91.013 Allergy to seafood
CPT/HCPCS: 36415; 71045; 80048; 80076; 83690; 84484; 85025; 93005; 99284; G0463

== ENCOUNTER 2022-02-07 17:25 | Emergency (ER) | payer OTHER ==
[~2022-02-07] VITALS: Ht 152.4 cm; Wt 62.5 kg
[~2022-02-07 17:25] MED LIST changes: -D31000TA2 PO; +VITA100093 PO
[2022-02-07 17:33] VITALS: BP 152/96
== END 2022-02-07 18:54 | disposition left against medical advice (07) ==
LOC: M ED 17:25
DX: Z53.21 Procedure and treatment not carried out due to patient leaving prior to being seen by health care provider (principal)

== ENCOUNTER 2022-04-13 18:07 | Emergency (ER) | payer OTHER ==
[~2022-04-13] VITALS: Ht 152.4 cm; Wt 61.2 kg
[2022-04-13 20:02] LABS: HEMATOCRIT 36.8 % (36.0-47.0); HEMOGLOBIN 12.2 g/dl (12.0-15.5); MEAN CORPUSCULAR HEMOGLOBIN 31.3 pg (27.0-33.0); MEAN CORPUSCULAR HGB CONC 33.2 g/dl (32.0-36.5); MEAN CORPUSCULAR VOLUME 94.4 fl (80.0-96.0); PLATELET COUNT, AUTOMATED 253 10^3/uL (150-450); WHITE BLOOD COUNT 8.3 10^3/uL (4.0-10.0)
[2022-04-13 21:23] LABS: BLOOD UREA NITROGEN 11 MG/DL (7-18); CALCIUM LEVEL 9.2 MG/DL (8.5-10.1); CARBON DIOXIDE LEVEL 26 MEQ/L (21-32); CHLORIDE LEVEL 108 MEQ/L (98-107); CREATININE FOR GFR 0.76 MG/DL (0.55-1.30); GLOMERULAR FILTRATION RATE > 60.0 (>60); GLUCOSE, FASTING 124 MG/DL (70-100); SODIUM LEVEL 139 MEQ/L (136-145)
[2022-04-13 22:41] VITALS: BP 146/86
[2022-04-13 23:23] LABS: APPEARANCE, URINE CLEAR (CLEAR); BACTERIA, URINE AUTO NEGATIVE (NEGATIVE); BILIRUBIN, URINE AUTO NEGATIVE (NEGATIVE); BLOOD, URINE BLOOD 1+ (NEGATIVE); COLOR, URINE STRAW (YELLOW); GLUCOSE, URINE (UA) AUTO NEGATIVE (NEGATIVE); KETONE, URINE AUTO TRACE mg/dL (NEGATIVE); LEUKOCYTE ESTERASE, URINE AUTO NEGATIVE (NEGATIVE); NITRITE, URINE AUTO NEGATIVE (NEGATIVE); PROTEIN, URINE AUTO NEGATIVE (NEGATIVE); RBC, URINE AUTO 2 /HPF (0-3); SPECIFIC GRAVITY URINE AUTO 1.008 (1.002-1.035); SQUAMOUS EPITHELIAL CELL UR AU 0 /HPF (0-6); UROBILINOGEN, URINE AUTO 0.2 mg/dL (0.0-2.0); WBC, URINE AUTO 0 /HPF (0-3)
== END 2022-04-14 00:40 | disposition left against medical advice (07) ==
LOC: M ED 18:07
DX: Z53.21 Procedure and treatment not carried out due to patient leaving prior to being seen by health care provider (principal)